=== PATIENT | male | born 1965 | race Asian ===

== ENCOUNTER 2017-12-11 14:45 | Emergency (ER) | payer OTHER ==
[~2017-12-11] VITALS: Ht 175.3 cm; Wt 85.2 kg
[2017-12-11 15:12] LABS: MICROSCOPIC NOT IND
[2017-12-11 15:15] LABS: CULTURE INDICATED? NO
[2017-12-11 15:30] LABS: ALBUMIN 3.7 g/dL (3.4-5.0); ANION GAP 8 mmol/L (5-15); CALCIUM 9.3 mg/dL (8.5-10.1); CHLORIDE 108 mmol/L (98-107)
[2017-12-11 15:34] LABS: ALANINE AMINOTRANSFERASE 43 U/L (12-78); ALKALINE PHOSPHATASE 123 U/L (45-117); BILIRUBIN,TOTAL 0.4 mg/dL (0.2-1.0); CREATININE 0.81 mg/dL (0.7-1.3); TOTAL PROTEIN 8.4 g/dL (6.4-8.2)
[2017-12-11 15:36] LABS: MEAN CORPUSCULAR HEMOGLOBIN 31.5 pg (27.5-34.5); MEAN CORPUSCULAR HGB CONC 34.4 g/dL (33.2-36.2); MEAN CORPUSCULAR VOLUME 91.8 fL (81-97); MEAN PLATELET VOLUME 9.5 fL (7.4-10.4); PLATELET COUNT 272 x10^3/uL (130-400); RED BLOOD COUNT 5.39 x10^6/uL (4.38-5.82); RED CELL DISTRIBUTION WIDTH 13.1 % (9.4-14.8)
[2017-12-11 15:37] LABS: MD YES
[2017-12-11 16:01] LABS: EOS% (MANUAL) 1 % (1-7); LYMPH#(MANUAL) 2.53 x10^3/uL (1-3.4); LYMPHS% (MANUAL) 25 % (22-44); MONOS#(MANUAL) 0.91 x10^3/uL (0.3-2.7); MONOS% (MANUAL) 9 % (2-9); REACTIVE LYMPHS % (MANUAL) 2 % (0-0); SEG#(MANUAL) 6.36 x10^3/uL (1.8-6.8); SEGS% (MANUAL) 63 % (42-75)
[2017-12-11 16:02] LABS: <RBC MORPHOLOGY> NORMAL
[2017-12-11 16:03] LABS: <PLATELET ESTIMATE> ADEQUATE; <PLT MORPHOLOGY> NORMAL PLT MORPH
[2017-12-11 18:08] VITALS: BP 126/86
== END 2017-12-11 19:11 | disposition home or self-care (01) ==
LOC: ED 17:54
DX: R10.32 Left lower quadrant pain (principal)
CPT/HCPCS: 36415; 74176; 80053; 81003; 83690; 85025; 99285

== ENCOUNTER 2019-03-25 22:00 | Emergency (ER) | payer OTHER ==
[~2019-03-25] VITALS: Ht 177.8 cm; Wt 82.6 kg
[2019-03-25] MEDS ORDERED: ACETAMINOPHEN 500 MG TABLET ONE (22:18)
[2019-03-25] MEDS ORDERED: ACETAMINOPHEN 500 MG TABLET PO ONE (22:30)
[2019-03-25 22:39] LABS: RAPID INFLUENZA A POSITIVE (Negative); RAPID INFLUENZA B Negative (Negative)
[2019-03-25 22:54] VITALS: BP 128/78
== END 2019-03-25 23:06 | disposition home or self-care (01) ==
LOC: ED 22:45
DX: J10.1 Influenza due to other identified influenza virus with other respiratory manifestations (principal); I10 Essential (primary) hypertension; F17.210 Nicotine dependence, cigarettes, uncomplicated
CPT/HCPCS: 71046; 87400; 99284

== ENCOUNTER 2019-12-08 11:03 | Emergency (ER) | payer BC, OTHER ==
[~2019-12-08] VITALS: Ht 177.8 cm; Wt 82.9 kg
--- NOTE | 2019-12-08 11:50 | NUR ---
PT CAME IN CO "MY BP HAS BEEN HIGH THE LAST FEW DAYS". PT TAKES 300MG [place] DAILY. PT RESTING IN [facility]. CURRENT BP 132/92. BLANKET PROVIDED.
[2019-12-08] MEDS ORDERED: ASPIRIN 81 MG TABLET CHEW ONE (11:56)
[2019-12-08] MEDS ORDERED: ASPIRIN 81 MG TABLET CHEW PO ONE (12:00)
[2019-12-08 12:19] LABS: BASOPHILS % (AUTO) 0 % (0-1); EOSINOPHILS % (AUTO) 3 % (1-7); LYMPHOCYTES % (AUTO) 27 % (22-44); MEAN CORPUSCULAR HEMOGLOBIN 30.3 pg (27.5-34.5); MEAN CORPUSCULAR HGB CONC 33.3 g/dL (33.2-36.2); MEAN PLATELET VOLUME 8.4 fL (7.4-10.4); MONOCYTES % (AUTO) 7 % (2-9); NEUTROPHILS % (AUTO) 63 % (42-75); PLATELET COUNT 287 x10^3/uL (130-400); RED BLOOD COUNT 5.08 x10^6/uL (4.38-5.82); RED CELL DISTRIBUTION WIDTH 13.7 % (9.4-14.8)
[2019-12-08 12:21] LABS: MD NO
[2019-12-08 12:26] LABS: ALBUMIN 3.7 g/dL (3.4-5.0); ANION GAP 3 mmol/L (5-15); CHLORIDE 108 mmol/L (98-107)
[2019-12-08 12:32] LABS: ALANINE AMINOTRANSFERASE 51 U/L (12-78); ALKALINE PHOSPHATASE 89 U/L (45-117); BILIRUBIN,TOTAL 0.7 mg/dL (0.2-1.0); CREATININE 0.93 mg/dL (0.7-1.3); TROPONIN I < 0.015 ng/mL (0.000-0.045)
[2019-12-08 12:39] VITALS: BP 133/82
== END 2019-12-08 13:58 | disposition home or self-care (01) ==
LOC: ED 13:32
DX: I10 Essential (primary) hypertension (principal); R42 Dizziness and giddiness; R94.31 Abnormal electrocardiogram [ECG] [EKG]
CPT/HCPCS: 36415; 80053; 84484; 85025; 93005; 99284

== ENCOUNTER 2020-04-24 17:51 | Emergency (ER) | payer BC, OTHER ==
[~2020-04-24] VITALS: Ht 172.7 cm; Wt 70.0 kg
--- NOTE | 2020-04-24 18:31 | NUR ---
Pt to imaging now.
[2020-04-24] MEDS ORDERED: HYDROcodone/APAP 5/325 TABLET PO ONE (19:00)
--- NOTE | 2020-04-24 19:00 | NUR ---
Pt ambulatory to bathroom, steady gait. Pt given ice pack. Report to BERNA Bermudez.
[2020-04-24] MEDS ORDERED: HYDROcodone/APAP 5/325 TABLET ONE (19:02)
--- NOTE | 2020-04-24 19:47 | NUR ---
RECEIVED REPORT FROM [facility]ONEL AT THIS TIME. I ASSUMED CARE OF THIS PATIENT
--- NOTE | 2020-04-24 20:10 | NUR ---
PATIENT RESTING IN BED WITH ICE PACK TO L SIDE OF FACE AND EYES CLOSED. VS REMAIN STABLE. WILL CONTINUE TO MONITOR.
--- NOTE | 2020-04-24 20:40 | NUR ---
patient provided new ice pack. denies vision changes but unable to truly assess this as patient's L eye has orbital swelling and bruising making it difficult for patient to open eyelid fully. blood to sclera. pupils remain reactive to light; 3mm; and round and same size. Dr. Hussein to see patient. will continue to monitor.
--- NOTE | 2020-04-24 22:10 | NUR ---
discharge instructions reviewed with patient and patient's at bedside. no further questions. i informed patient and patient's that norco prescription was sent electronically to prefered pharmacy, [facility], when needed for pain and reviewed risks with patient of taking this medication for pain management. steady gait to lobby. work note provided to patient. all personal belongings with patient on dc. no IV placed during this ER visit
[2020-04-24 22:15] VITALS: BP 142/91
== END 2020-04-24 22:18 | disposition home or self-care (01) ==
LOC: ED 22:00
DX: S02.32XA Fracture of orbital floor, left side, initial encounter for closed fracture (principal); I10 Essential (primary) hypertension; W01.0XXA Fall on same level from slipping, tripping and stumbling without subsequent striking against object, initial encounter; Y93.89 Activity, other specified; Y92.69 Other specified industrial and construction area as the place of occurrence of the external cause; Y99.0 Civilian activity done for income or pay
CPT/HCPCS: 70450; 70486; 99285